=== PATIENT | male | born 1980 | race Asian ===

== ENCOUNTER 2019-01-04 18:51 | Emergency (ER) | payer OTHER ==
[2019-01-04 19:08] VITALS: BP 172/80; PULSE 73; TEMP 98.3; BMI 31.4
--- NOTE | 2019-01-04 19:08 | PDOC ---
Rapid Medical Evaluation Medical Evaluation: Allergies Allergy/AdvReac Type Severity Reaction Status Date / Time No Known Allergies Allergy Verified 10/29/17 11:04 I have performed a brief in-person evaluation of this patient. The patient presents with a chief complaint of: C/O L ring finger discomfort x2- 3 weeks; denies trauma; states feels like finger gets "stuck" when attempting to extend it Pertinent physical exam findings: In NAD, FROM of L hand/fingers, no swelling, deformity I have ordered the following: xray The patient will proceed to the ED for further evaluation. 01/04/19 19:06
--- NOTE | 2019-01-04 20:10 | PDOC ---
History of Present Illness - General Chief Complaint: Pain Stated Complaint: LEFT FINGER DISCOMFORT/EVALUATION Time Seen by Provider: 01/04/19 19:06 History Source: Patient Exam Limitations: No Limitations - History of Present Illness Initial Comments: 01/04/19 20:03 38 year old male with history of HTN presents with complaints of stiffness in left 4th digit x 3-4 weeks. Patient reports that in the morning when he wakes up he cannot extend his left 4th digit from flexed position without assistance. Denies numbness, tingling or past/ recent injury to finger. Reports no pain at present. Occurred: reports: other (3-4 weeks) Severity: reports: mild Upper Extremity Pain Location: left: 4th finger Method of Injury: reports: unknown Modifying Factors: improves with: None Extremity Pain Location - Extremity Pain Location Extremity Pain Locations: left: 4th finger Past History - Past Medical History Allergies/Adverse Reactions: Allergies Allergy/AdvReac Type Severity Reaction Status Date / Time No Known Allergies Allergy Verified 10/29/17 11:04 Home Medications: Ambulatory Orders Acyclovir [Zovirax -] 800 mg PO 5XD #35 tablet 10/29/17 Prednisone [Deltasone] 20 mg PO DAILY #7 tablet 10/29/17 COPD: No - Suicide/Smoking/Psychosocial Hx Smoking History: Never smoked Hx Alcohol Use: No Drug/Substance Use Hx: No Review of Systems - Review of Systems Able to Perform ROS?: Yes Is the patient limited Indian proficient: No Constitutional: No: Chills, Fever HEENTM: No: Nose Pain Respiratory: No: See HPI Cardiac (ROS): No: See HPI ABD/GI: No: See HPI, Nausea : No: Testicular Swelling Musculoskeletal: No: Back Pain Integumentary: No: Erythema, Lesions, Pruritus Neurological: No: Numbness, Paresthesia, Tingling, Weakness, Ataxia, Dizziness *Physical Exam - Vital Signs Last Vital Signs Temp Pulse Resp BP Pulse Ox 98.3 F 73 16 172/80 H 100 01/04/19 19:06 01/04/19 19:06 01/04/19 19:06 01/04/19 19:06 01/04/19 19:06 - Physical Exam General Appearance: Yes: Nourished, Appropriately Dressed. No: Apparent Distress HEENT: positive: JIM, TMs Normal, Pharynx Normal Neck: positive: Supple. negative: Lymphadenopathy (R), Lymphadenopathy (L) Respiratory/Chest: positive: Lungs Clear Cardiovascular: positive: Regular Rhythm, Regular Rate Extremity: positive: Normal Capillary Refill, Normal Inspection, Normal Range of Motion, Other. negative: Delayed Capillary Refill, Erythema, Inflammation Neurologic: positive: Fully Oriented, Normal Response, Motor Strength 5/5, Respond to painful stimul, Numbness, Finger to Nose. negative: Facial Droop Medical Decision Making - Medical Decision Making 01/04/19 20:07 38 year old male with history of HTN presents with complaints of stiffness in left 4th digit x 3-4 weeks. xray of 4th left digit wet read xray by me negative for fracture of dislocation *DC/Admit/Observation/Transfer Diagnosis at time of Disposition: Trigger finger of left hand Qualifiers: Trigger finger location: ring finger Qualified Code(s): M65.342 - Trigger finger, left ring finger - Discharge Dispostion Disposition: HOME Condition at time of disposition: Good Decision to Admit order: No - Referrals Referrals: [place] MD [Primary Care Provider] - Richar Alonso MD [Staff Physician] - (call for appointment ) - Patient Instructions Printed Discharge Instructions: DI for Trigger Finger Additional Instructions: Activity as tolerated call hand specialist for appointment - Post Discharge Activity Forms/Work/School Notes: Back to Work
== END 2019-01-04 20:20 | disposition home or self-care (01) ==
LOC: JERFT 18:51
DX: M65.342 Trigger finger, left ring finger (principal)
CPT/HCPCS: 73140-TC-LT-FY; 99281-25

== ENCOUNTER 2019-04-28 16:33 | Emergency (ER) | payer OTHER ==
[2019-04-28 16:47] VITALS: BP 147/85; PULSE 76; TEMP 98.2; BMI 29.5
[2019-04-28] MEDS ORDERED: LIDOCAINE HCL 1%, 10 MG/ML (50 mL VIAL) SQ ONE (16:52)
[2019-04-28] MEDS ORDERED: LIDOCAINE HCL 1%, 10 MG/ML (20ML VIAL) ONE (16:54)
--- NOTE | 2019-04-28 17:30 | PDOC ---
History of Present Illness - General Chief Complaint: Abscess Boil Stated Complaint: BOIL ON BACK Time Seen by Provider: 04/28/19 16:42 - History of Present Illness Initial Comments: 04/28/19 17:27 38-year-old male with a past medical history significant for hypertension presents for a painful mass on his right shoulder over the last year recently exacerbated without any precipitating traumatic event over the last week no systemic symptoms Past History - Past Medical History Allergies/Adverse Reactions: Allergies Allergy/AdvReac Type Severity Reaction Status Date / Time No Known Allergies Allergy Verified 10/29/17 11:04 Home Medications: Ambulatory Orders Acyclovir [Zovirax -] 800 mg PO 5XD #35 tablet 10/29/17 predniSONE [Deltasone] 20 mg PO DAILY #7 tablet 10/29/17 Cephalexin [Keflex] 500 mg PO QID #40 capsule 04/28/19 Sulfamethoxazole/Trimethoprim [Bactrim Ds -] 1 tab PO BID #14 tablet 04/28/19 COPD: No - Psycho Social/Smoking Cessation Hx Smoking History: Never smoked Have you smoked in the past 12 months: No Information on smoking cessation initiated: No Hx Alcohol Use: No Drug/Substance Use Hx: No Review of Systems - Review of Systems Constitutional: No: Fever Integumentary: Yes: See HPI *Physical Exam - Vital Signs Last Vital Signs Temp Pulse Resp BP Pulse Ox 98.2 F 76 18 147/85 100 04/28/19 16:38 04/28/19 16:38 04/28/19 16:38 04/28/19 16:38 04/28/19 16:38 - Physical Exam 04/28/19 17:27 There is a tender fluctuant erythemic mass about 5 cm circumferentially on the right shoulder on the skin overlying the medial superior border of the scapula. There is mild surrounding induration. ED Treatment Course - Medications Given in the ED: ED Medications Discontinued Medications Generic Name Dose Route Start Last Admin Trade Name Freq PRN Reason Stop Dose Admin Lidocaine HCl 20 ml 04/28/19 16:52 04/28/19 17:01 Xylocaine 1% SQ 04/28/19 16:53 20 ml ONCE ONE Administration Medical Decision Making - Medical Decision Making 04/28/19 17:28 Under aseptic technique 10 cc of 1% lidocaine without epinephrine was used to anesthetize the area. Using an 11 blade and incision was made in the area of fluctuance a large amount of purulent material was expressed. The area was deloculated packed with 1 inch iodoform and a dry sterile dressing placed. This was tolerated well 04/28/19 17:29 Plan; Patient is to return in 2 days for packing removal switching to wet-to-dry dressing changes. Wound check at that time Discharge - Discharge Information Problems reviewed: Yes Clinical Impression/Diagnosis: Skin abscess Condition: Stable Disposition: HOME - Admission No - Additional Discharge Information Prescriptions: Cephalexin [Keflex] 500 mg PO QID #40 capsule Sulfamethoxazole/Trimethoprim [Bactrim Ds -] 1 tab PO BID #14 tablet - Follow up/Referral Referrals: [place] MD [Primary Care Provider] - Harvinder Schwab MD [Staff Physician] - - Patient Discharge Instructions Patient Printed Discharge Instructions: DI for Incision and Drainage of a Skin Abscess Additional Instructions: Please keep the area clean and dry for the next 48 hours. After 48 hours return to the emergency room for packing removal. Please take the antibiotics as directed Motrin as directed for pain. You may supplement the medication with Tylenol do not take other [id number] anti-inflammatory medications. Return to the emergency room sooner problems develop. Do not remove the dressing until you are seen in the ER in 2 days. Follow-up with general surgery in 2 to 3 days for further evaluation and treatment options as well. - Post Discharge Activity
== END 2019-04-28 17:36 | disposition home or self-care (01) ==
LOC: JERFT 16:33
PROC: 0H9BXZZ Drainage of Right Upper Arm Skin, External Approach (ICD-10-PCS; principal; 2019-04-28)
DX: L02.413 Cutaneous abscess of right upper limb (principal); I10 Essential (primary) hypertension
CPT/HCPCS: 99281-25